=== PATIENT | female | born 1995 | race Caucasian/White ===

== ENCOUNTER 2018-08-03 10:20 | Emergency (ER) | payer MEDICAID ==
[~2018-08-03] VITALS: Ht 165.1 cm; Wt 52.6 kg
[2018-08-03 10:25] VITALS: BP 98/59
[2018-08-03] MEDS ORDERED: NACL 0.9% 1,000 ML IV SCH ×2 (10:42)
[2018-08-03] MEDS ORDERED: KETOROLAC 30 MG/ML VIAL IVP ONE (10:45)
[2018-08-03] MEDS ORDERED: cefTRIAXone 2,000 MG in DEXTROSE 5% 100 ML IV ONE (10:45)
[2018-08-03] MEDS ORDERED: cefTRIAXone 2,000 MG VIAL ONE (10:56)
[2018-08-03 12:02] VITALS: BP 101/59
== END 2018-08-03 12:02 | disposition home or self-care (01) ==
LOC: MED 10:20
DX: N12 Tubulo-interstitial nephritis, not specified as acute or chronic (principal)
CPT/HCPCS: 81002; 81025; 96365; 96375; 99283; J0696; J1885; J7030

== ENCOUNTER 2021-06-19 17:49 | Emergency (ER) | payer MEDICAID, OTHER ==
[~2021-06-19] VITALS: Ht 162.6 cm; Wt 51.7 kg
[2021-06-19 18:21] VITALS: BP 94/71
--- NOTE | 2021-06-19 18:30 | NUR ---
urine specimen in dirty utility
[2021-06-19] MEDS ORDERED: ACET-10509 PO (19:30)
[2021-06-19] MEDS ORDERED: CEPH-588 PO (19:30)
[2021-06-19] MEDS ORDERED: ACETAMINOPHEN EXTRA STRENGTH 500 MG TAB PO ONE (19:35)
--- NOTE | 2021-06-19 19:35 | NUR ---
RECEIVED IN BED 6 WITH C/O RIGHT FLANK PAIN 01/26, DENIES URINARY COMPLAINTS BUT STATES HAS HAD UTI
[2021-06-19 20:20] VITALS: BP 94/71
--- NOTE | 2021-06-19 20:20 | NUR ---
Patient discharged with v/s stable. Written and verbal after care instructions given and explained. Patient alert, oriented and verbalized understanding of instructions. Ambulatory with steady gait. All questions addressed prior to discharge. ID band removed. Patient advised to follow up with PMD. Rx of keflex & tylenol given. Patient educated on indication of medication including possible reaction and side effects. Opportunity to ask questions provided and answered.
== END 2021-06-19 20:20 | disposition home or self-care (01) ==
LOC: MED 17:49
DX: N39.0 Urinary tract infection, site not specified (principal); Z79.899 Other long term (current) drug therapy
CPT/HCPCS: 99283

== ENCOUNTER 2021-11-11 17:40 | Emergency (ER) | payer OTHER ==
[~2021-11-11] VITALS: Ht 165.1 cm; Wt 53.1 kg
[~2021-11-11 17:40] MED LIST: ACET-10509 PO; CEPH-588 PO
[2021-11-11 17:52] VITALS: BP 126/68
--- NOTE | 2021-11-11 19:33 | NUR ---
PT TAKEN TO BED 12
--- NOTE | 2021-11-11 19:36 | NUR ---
Dr. Bravo at bedside to exam patient.
[2021-11-11] MEDS ORDERED: IBUP-2213 PO (19:48)
[2021-11-11] MEDS ORDERED: CIPR500T4 PO (19:48)
[2021-11-11 20:05] VITALS: BP 113/72
--- NOTE | 2021-11-11 20:05 | NUR ---
d/c with VSS. d/c education given. opportunity to ask questions given and answered. rx of cipro and motrin given.
== END 2021-11-11 20:05 | disposition home or self-care (01) ==
LOC: MED 17:40
DX: N12 Tubulo-interstitial nephritis, not specified as acute or chronic (principal); Z79.899 Other long term (current) drug therapy; Z79.2 Long term (current) use of antibiotics
CPT/HCPCS: 81002; 81025; 99283